=== PATIENT | male | born 1955 | race Caucasian/White ===

== ENCOUNTER → 2018-10-17 | Outpatient (CLI) | payer OTHER ==
--- NOTE | 2018-10-18 07:19 | ECHO ---
DATE OF PROCEDURE: 10/17/2018 AGE: 63 GENDER: Male REFERRING PROVIDER: Corinne Sanchez. HEIGHT: 75 inches. WEIGHT: 302 pounds. BODY SURFACE AREA: 2.61 m2 OUTPATIENT: INDICATION: Sleep apnea. MEASUREMENTS: 2D MEASUREMENTS: RV - 4.2 cm LV- 4.9 cm Septum - 1.0 cm Posterior wall - 1.0 cm Aortic root - 4.0 cm LA - 4.0 cm LVEF - 70% DOPPLER MEASUREMENTS: AV - 1.3 m/s LVOT - 1.0 m/s LVOT diameter - 2.5 cm MV-E: 79 A: 55 EA ratio 1.4 Early mitral deacceleration time: 173 ms E-prime - 10.4 A-prime - 10 E/E prime ratio - 7.6 PV - 0.85 m/s Pulmonary artery acceleration time 130 ms PASP - 24 mmHg IVC - 1.5 cm COMMENTS: Normal sinus rhythm without intraventricular conduction disturbance. Technically challenging study in light of the patient's body habitus but diagnostically useful information was still obtained. M-mode and two-dimensional echocardiography was performed with pulsed, continuous, color flow and tissue Doppler studies. Normal left ventricular size, wall thickness and wall motion. Left atrial size upper limits of normal with current Doppler assessment of LV diastolic function within normal limits. Normal estimated mean left atrial pressure. Right heart chamber sizes upper limits of normal with normal wall motion and estimated pulmonary arterial pressure. Normal IVC size and collapse against an elevated central venous pressure. Normal appearing and functioning valvular structures. Mildly dilated aortic root. No apparent intracardiac mass or pericardial effusion. MTDD
== END ==
LOC: M CARPUL 09:00
PROVIDERS: ATTEND Nurse Practitioner Family
DX: I77.810 Thoracic aortic ectasia (principal); G47.37 Central sleep apnea in conditions classified elsewhere

== ENCOUNTER 2019-12-30 22:46 | Emergency (ER) | payer MEDICARE, OTHER ==
[~2019-12-30] VITALS: Ht 190.5 cm; Wt 131.8 kg
[2019-12-30] MEDS ORDERED: NS 1,000 ML IV ONE (23:00)
[2019-12-30 23:27] LABS: BASO # 0.1 10^3/uL (0.0-0.2); BASO % 1.2 % (0.0-1.0); EOS # 0.2 10^3/uL (0.0-0.5); EOS % 2.8 % (0.0-3.0); HEMATOCRIT 45.6 % (42.0-52.0); HEMOGLOBIN 14.9 g/dl (13.5-17.5); LYMPH # 2.6 10^3/uL (1.5-5.0); MEAN CORPUSCULAR HEMOGLOBIN 30.5 pg (27.0-33.0); MEAN CORPUSCULAR HGB CONC 32.7 g/dl (32.0-36.5); MEAN CORPUSCULAR VOLUME 93.4 fl (80.0-96.0); MONO # 1.2 10^3/uL (0.0-0.8); MONO % 13.8 % (0.0-5.0); NEUTROPHILS # 4.5 10^3/uL (1.5-8.5); NEUTROPHILS % 51.7 % (36.0-66.0); PLATELET COUNT, AUTOMATED 178 10^3/uL (150-450); RED BLOOD COUNT 4.88 10^6/uL (4.30-6.10); WHITE BLOOD COUNT 8.6 10^3/uL (4.0-10.0)
[2019-12-30] MEDS ORDERED: MORPHINE 4 MG/ML 1ML VIAL/SYRINGE (J2270) IV ONE (23:30)
[2019-12-30 23:35] LABS: APPEARANCE, URINE CLOUDY (CLEAR); BACTERIA, URINE AUTO NEGATIVE (NEGATIVE); BILIRUBIN, URINE AUTO NEGATIVE (NEGATIVE); BLOOD, URINE BLOOD 3+ (NEGATIVE); COLOR, URINE YELLOW (YELLOW); GLUCOSE, URINE (UA) AUTO NEGATIVE (NEGATIVE); KETONE, URINE AUTO NEGATIVE (NEGATIVE); LEUKOCYTE ESTERASE, URINE AUTO NEGATIVE (NEGATIVE); MUCUS, URINE SMALL (NEGATIVE); NITRITE, URINE AUTO NEGATIVE (NEGATIVE); PROTEIN, URINE AUTO 1+ mg/dL (NEGATIVE); RBC, URINE AUTO TNTC /HPF (0-3); SPECIFIC GRAVITY URINE AUTO 1.023 (1.002-1.035); SQUAMOUS EPITHELIAL CELL UR AU 0 /HPF (0-6); UROBILINOGEN, URINE AUTO 0.2 mg/dL (0.0-2.0); WBC, URINE AUTO 2 /HPF (0-3)
--- NOTE | 2019-12-30 23:43 | REPVR ---
PROCEDURE INFORMATION: Exam: CT Abdomen And Pelvis Without Contrast Exam date and time: 12/30/2019 11:16 PM Age: 64 years old Clinical indication: Abdominal pain; Flank; Left; Additional info: L colic TECHNIQUE: Imaging protocol: Computed tomography of the abdomen and pelvis without contrast. Radiation optimization: All CT scans at this facility use at least one of these dose optimization techniques: automated exposure control; mA and/or kV adjustment per patient size (includes targeted exams where dose is matched to clinical indication); or iterative reconstruction. COMPARISON: No relevant prior studies available. FINDINGS: Liver: Normal. No mass. Gallbladder and bile ducts: Status post cholecystectomy. Pancreas: Normal. No ductal dilation. Spleen: Splenic calcifications. Adrenals: Normal. No mass. Kidneys and ureters: Small nonobstructing bilateral renal calculi. There is a left renal cyst measuring up to 23 mm with a Hounsfield measurement of 0 consistent with a Bosniak 1 cyst with no follow-up required. Mild left hydronephrosis with slight periureteral edema which extends to a 2 mm proximal ureteral calculus just below the UPJ. Stomach and bowel: There is colonic diverticulosis without evidence of diverticulitis. Appendix: A normal appendix is seen. Intraperitoneal space: Unremarkable. No free air. No significant fluid collection. Vasculature: Unremarkable. No abdominal aortic aneurysm. Lymph nodes: Unremarkable. No enlarged lymph nodes. Bladder: There is bladder wall thickening, however, the bladder is nondistended and is nonspecific. Reproductive: Unremarkable as visualized. Bones/joints: Degenerative disc and facet changes of the lower lumbar spine. Soft tissues: Unremarkable. IMPRESSION: 1. 2 mm proximal left ureteral calculus just below the UPJ with mild secondary obstructive uropathy. 2. Small nonobstructing bilateral renal calculi. 3. Status post cholecystectomy. 4. Old granulomatous disease of the spleen. 5. Colonic diverticulosis without diverticulitis. Electronically signed by: Say Montalvo On 12/30/2019 23:43:19 PM
[2019-12-30] MEDS ORDERED: TAMSULOSIN 0.4 MG CAP PO ONE (23:45)
[2019-12-31 00:13] LABS: ALBUMIN 3.5 GM/DL (3.2-5.2); ALT/SGPT 24 U/L (12-78); BILIRUBIN,DIRECT 0.1 MG/DL (0.0-0.2); BILIRUBIN,TOTAL 0.2 MG/DL (0.2-1.0); BLOOD UREA NITROGEN 24 MG/DL (7-18); CALCIUM LEVEL 8.7 MG/DL (8.8-10.2); CARBON DIOXIDE LEVEL 25 MEQ/L (21-32); CHLORIDE LEVEL 112 MEQ/L (98-107); CREATININE FOR GFR 1.12 MG/DL (0.70-1.30); GLOMERULAR FILTRATION RATE > 60.0 (>49); GLUCOSE, FASTING 95 MG/DL (70-100); LIPASE 83 U/L (73-393); POTASSIUM SERUM 4.4 MEQ/L (3.5-5.1); SODIUM LEVEL 143 MEQ/L (136-145); TOTAL PROTEIN 6.6 GM/DL (6.4-8.2)
[2019-12-31] MEDS ORDERED: KETOROLAC 30 MG/ML 1ML VIAL IV ONE (00:15)
[2019-12-31] MEDS ORDERED: FLOM0.4C39 PO (01:14)
[2019-12-31 01:59] VITALS: BP 127/61
== END 2019-12-31 02:06 | disposition home or self-care (01) ==
LOC: M ED 22:46
DX: N20.1 Calculus of ureter (principal); N20.0 Calculus of kidney; K57.30 Diverticulosis of large intestine without perforation or abscess without bleeding; D73.89 Other diseases of spleen; Z87.442 Personal history of urinary calculi
CPT/HCPCS: 74176; 80048; 80076; 81001; 83690; 85025; 96361; 96374; 96375; 99284; J1885; J2270

== ENCOUNTER → 2021-12-20 | Outpatient (CLI) | payer MEDICARE ==
[~2021-12-20] MED LIST: FLOM0.4C39 PO
== END ==
LOC: M SOG 08:32
PROVIDERS: ATTEND Orthopaedic Surgery Hand Surgery
DX: M79.642 Pain in left hand (principal)

== ENCOUNTER 2022-02-03 10:50 | Emergency (ER) | payer MEDICARE ==
[~2022-02-03] VITALS: Ht 190.5 cm; Wt 117.6 kg
[2022-02-03] MEDS ORDERED: NAPR220C14 PO (10:58)
[2022-02-03] MEDS ORDERED: CAPSAICIN 0.025% CR 60 GM TOP STA (16:55)
[2022-02-03 17:19] LABS: BASO # 0.1 10^3/uL (0.0-0.2); BASO % 1.2 % (0.0-1.0); EOS # 0.2 10^3/uL (0.0-0.5); EOS % 2.1 % (0.0-3.0); HEMATOCRIT 47.7 % (42.0-52.0); HEMOGLOBIN 15.6 g/dl (13.5-17.5); LYMPH # 2.7 10^3/uL (1.5-5.0); LYMPH % 32.9 % (24.0-44.0); MEAN CORPUSCULAR HEMOGLOBIN 30.6 pg (27.0-33.0); MEAN CORPUSCULAR HGB CONC 32.7 g/dl (32.0-36.5); MEAN CORPUSCULAR VOLUME 93.5 fl (80.0-96.0); MONO % 11.8 % (2.0-8.0); NEUTROPHILS # 4.2 10^3/uL (1.5-8.5); NEUTROPHILS % 51.5 % (36.0-66.0); PLATELET COUNT, AUTOMATED 249 10^3/uL (150-450); WHITE BLOOD COUNT 8.2 10^3/uL (4.0-10.0)
[2022-02-03 17:46] LABS: ERYTHROCYTE SEDIMENTATION RATE 23 mm/hr (0-20)
[2022-02-03] MEDS ORDERED: DICL20GE TP (20:25)
[2022-02-03] MEDS ORDERED: TRAM50TA2 PO (20:25)
[2022-02-03] MEDS ORDERED: CAPS0.022 TOP (20:25)
[2022-02-03 20:34] VITALS: BP 136/80
[2022-02-07 12:08] LABS: ANTINUCLEAR ANTIBODIES DIRECT Negative (Negative)
== END 2022-02-03 20:48 | disposition home or self-care (01) ==
LOC: M ED 10:50
DX: R22.33 Localized swelling, mass and lump, upper limb, bilateral (principal); M25.511 Pain in right shoulder; M25.512 Pain in left shoulder; Z87.442 Personal history of urinary calculi; Z88.9 Allergy status to unspecified drugs, medicaments and biological substances; Z79.899 Other long term (current) drug therapy